=== PATIENT | female | born 1990 | race Caucasian/White ===

== ENCOUNTER 2016-06-07 16:59 | Emergency (ER) | payer BC ==
[2016-06-07 18:06] VITALS: BP 110/72
--- NOTE | 2016-06-07 18:15 | UC ---
Throat Pain/Nasal Harman HPI - HPI Summary HPI Summary: The patient comes in today for: 1. Body aches and sore throat: Onset: 2 days. Palliative/provocative: Naproxen helped the body aches. Quality: Aches Region/radiation: "All over" Severity: 7/10 though she appears more like 5/10 Time: Constant. Associated symptoms: Rhinitis: None Cough: present, but "not very much" mucous. Fever: No temperature taken. Vomiting: None Diarrhea: None. She works at [employer] and suspects that she may have picked up something for this. * - History of Current Complaint Chief Complaint: UCRespiratory Stated Complaint: FLU SYMPTOMS Time Seen by Provider: 06/07/16 18:07 Hx Last Menstrual Period: 05/29/16 ?: No - Allergies/Home Medications Allergies/Adverse Reactions: Allergies Allergy/AdvReac Type Severity Reaction Status Date / Time No Known Allergies Allergy Verified 02/29/16 08:18 Home Medications: Home Medications Naproxen Sodium [Eql Naproxen Sodium] 440 mg PO 06/07/16 [History] PMH/Surg Hx/FS Hx/Imm Hx Previously Healthy: Yes Endocrine History Of: Denies: Diabetes, Thyroid Disease, Hyperthyroidism, Hypothyroidism, Dyslipidemia Cardiovascular History Of: Denies: Cardiac Disorders, Hypertension, Pacemaker/ICD, Myocardial Infarction , Congestive Heart Failure, Atrial Fibrillation, Deep Vein Thrombosis, Bleeding Disorders Respiratory History Of: Denies: COPD, Asthma, Bronchitis, Pneumonia, Pulmonary Embolism GI/ History Of: Denies: Gastroesophageal Reflux, Ulcer, Gastrointestinal Bleed, Gall Bladder Disease, Kidney Stones, Diverticulitis, Renal Disease, Urosepsis Neurological History Of: Denies: TIA, CVA, Dementia, Seizures, Migraine Psychological History Of: Denies: Anxiety, Depression, Bipolar Disorder, Schizophrenia, Post Traumatic Stress Disorder Cancer History Of: Denies: Lung Cancer, Colorectal Cancer, Breast Cancer, Prostate Cancer, Cervical Cancer Other History Of: Negative For: HIV, Hepatitis B, Hepatitis C, Anticoagulant Therapy - Surgical History Surgical History: None - Family History Known Family History: Negative: Cardiac Disease, Hypertension - Social History Occupation: Employed Full-time Alcohol Use: None Substance Use Type: None Smoking Status (MU): Never Smoked Tobacco - Immunization History Most Recent Influenza Vaccination: 2015/2016 Review of Systems Constitutional: Negative Skin: Negative Eyes: Negative ENT: Sore Throat Respiratory: Cough Cardiovascular: Negative Gastrointestinal: Negative Genitourinary: Negative All Other Systems Reviewed And Are Negative: Yes Physical Exam Triage Information Reviewed: Yes Appearance: Well-Appearing, No Pain Distress, Well-Nourished Vital Signs: Initial Vital Signs Temp 98.2 F 06/07/16 18:02 Pulse 102 06/07/16 18:02 Resp 18 06/07/16 18:02 BP 110/72 06/07/16 18:02 Pulse Ox 99 06/07/16 18:02 Vital Signs Reviewed: Yes Eyes: Positive: Conjunctiva Clear. Negative: Discharge ENT: Positive: Hearing grossly normal. Negative: Pharyngeal erythema, Nasal congestion, Nasal drainage, TM bulging, TM dull, TM red, Tonsillar swelling, Tonsillar exudate Dental: Negative: Gross Decay/Caries @, Dental Fracture @ Neck: Positive: Supple, Nontender, No Lymphadenopathy. Negative: Nuchal Rigidity Respiratory: Positive: Chest non-tender, Lungs clear, No respiratory distress, No accessory muscle use. Negative: Crackles, Wheezing Cardiovascular: Positive: RRR, No Murmur Abdomen Description: Positive: Nontender, No Organomegaly. Negative: Distended , Guarding, Peritoneal Signs Musculoskeletal: Positive: Strength Intact, ROM Intact Neurological: Positive: Alert, Muscle Tone Normal Psychological: Negative: Age Appropriate Behavior, Consolable Skin: Negative: rashes, breakdown Diagnostics - Laboratory Diagnostic Studies Completed/Ordered: Strep test: (-) Throat Pain/Nasal Course/Dx - Course Course Of Treatment: Patient was told how we could test her for influenza, but she did not want this. Her treatment options (with the negative strep test) were explained. But, she only wanted prescription of Naproxen. - Differential Dx/Diagnosis Differential Diagnosis/HQI/PQRI: Laryngitis, Pharyngitis, Tonsillitis Provider Diagnoses: Viral pharyngitis Discharge - Discharge Plan Condition: Stable Disposition: HOME Patient Education Materials: Pharyngitis (ED), Viral Syndrome (ED) Referrals: Sue Thompson MD [Primary Care Provider] - 1 Week (Please see your primary care provider in a week. If you get worse, please be seen sooner.)
[2016-06-07] MEDS ORDERED: Naproxen TAB* 250 MG PO ONE (18:19)
== END 2016-06-07 18:59 | disposition home or self-care (01) ==
LOC: UCEAST 16:59
DX: J02.9 Acute pharyngitis, unspecified (principal); M79.1 Myalgia
CPT/HCPCS: 87651; 99211; A9270-GY; G0463

== ENCOUNTER 2017-08-14 10:00 | Emergency (ER) | payer BC ==
[2017-08-14 10:15] VITALS: BP 119/66
--- NOTE | 2017-08-14 10:17 | UC ---
Throat Pain/Nasal Harman HPI - HPI Summary HPI Summary: Patient presents with an unremarkable past medical history. She presents today with 1 day onset throat pain, she states she is able to eat, drink, and handle her own secretions. She states she has been taking tylenol and using throat lozenges. She has not had any known ill contacts. She did not go to work today and need an excuse. - History of Current Complaint Stated Complaint: SORE THROAT, AND COUGH Time Seen by Provider: 08/14/17 10:04 Hx Last Menstrual Period: 05/29/16 Onset/Duration: Sudden Onset, Lasting Hours Severity: Mild Cough: None Associated Signs & Symptoms: Positive: Negative - Epiglottits Risk Factors Epiglottis Risk Factors: Negative - Allergies/Home Medications Allergies/Adverse Reactions: Allergies Allergy/AdvReac Type Severity Reaction Status Date / Time No Known Allergies Allergy Verified 02/29/16 08:18 PMH/Surg Hx/FS Hx/Imm Hx Previously Healthy: Yes Other History Of: Negative For: HIV, Hepatitis B, Hepatitis C, Anticoagulant Therapy - Surgical History Surgical History: None - Family History Known Family History: Negative: Cardiac Disease, Hypertension - Social History Occupation: Employed Full-time Lives: Alone Alcohol Use: None Substance Use Type: None Smoking Status (MU): Never Smoked Tobacco Have You Smoked in the Last Year: No - Immunization History Most Recent Influenza Vaccination: 2015/2016 Review of Systems Constitutional: Negative Skin: Negative Eyes: Negative ENT: Sore Throat Respiratory: Negative Cardiovascular: Negative Gastrointestinal: Negative Genitourinary: Negative Motor: Negative Neurovascular: Negative Musculoskeletal: Negative Neurological: Negative Psychological: Negative Is Patient Immunocompromised?: No All Other Systems Reviewed And Are Negative: Yes Physical Exam Triage Information Reviewed: Yes Appearance: Well-Appearing Vital Signs Reviewed: Yes Eye Exam: Normal ENT: Positive: Pharyngeal erythema, TMs normal, Uvula midline Dental Exam: Normal Neck exam: Normal Neck: Positive: 1 Respiratory Exam: Normal Cardiovascular Exam: Normal Abdominal Exam: Normal Musculoskeletal Exam: Normal Neurological Exam: Normal Psychological Exam: Normal Skin Exam: Normal Throat Pain/Nasal Course/Dx - Course Course Of Treatment: Patient presents with an unremarkable past medical history with 1 day onset sore throat, she is able to speak, drink, eat, and handle her own secretions. Her tonsilar nodes are not swollen, and there is no exudate present, with normal vital signs and a nontoxic appearance. She presents with what I feel is most likley a viral pharyngitis, and I recommend she continue conservative treatment of tyelnol, and throat lozengers. I did provide her with a work note, she may return tomorrow without limitations. - Differential Dx/Diagnosis Differential Diagnosis/HQI/PQRI: Pharyngitis Provider Diagnoses: pharyngitis Discharge - Sign-Out/Discharge Documenting (check all that apply): Discharge/Admit/Transfer - Discharge Plan Condition: Stable Disposition: HOME Forms: *Work Release Referrals: Sue Thompson MD [Primary Care Provider] - - Billing Disposition and Condition Condition: STABLE Disposition: HOME
== END 2017-08-14 10:15 | disposition home or self-care (01) ==
LOC: UCEAST 10:00
DX: J02.9 Acute pharyngitis, unspecified (principal)
CPT/HCPCS: 99211; G0463

== ENCOUNTER 2018-10-10 08:08 | Emergency (ER) | payer BC ==
[2018-10-10 08:17] VITALS: BP 114/77
--- NOTE | 2018-10-10 09:07 | UC ---
Complaint Female HPI - HPI Summary HPI Summary: 2 DAYS OF DYSURIA, URGENCY AND FREQUENCY. NO BACK PAIN, FEVER OR NAUSEA. PATIENT WAS TAKING VESICARE FOR POSSIBLE OVERACTIVE BLADDER PER UROLOGY BUT JUST STOPPED THIS MEDICATION ABOUT 2 DAYS AGO. - History Of Current Complaint Chief Complaint: UCGU Stated Complaint: urine issues Time Seen by Provider: 10/10/18 08:13 Hx Obtained From: Patient Hx Last Menstrual Period: 10/01/18 Onset/Duration: Gradual Onset, Lasting Days, Still Present Timing: Constant Severity Initially: Moderate Severity Currently: Moderate Pain Intensity: 6 Pain Scale Used: 0-10 Numeric Character: Burning Aggravating Factor(s): Urination Alleviating Factor(s): Nothing Associated Signs And Symptoms: Positive: Negative - Allergies/Home Medications Allergies/Adverse Reactions: Allergies Allergy/AdvReac Type Severity Reaction Status Date / Time No Known Allergies Allergy Verified 10/10/18 08:17 PMH/Surg Hx/FS Hx/Imm Hx - Additional Past Medical History Additional PMH: POSSIBLE OVERACTIVE BLADDER FIBROID UTERUS Other History Of: Negative For: HIV, Hepatitis B, Hepatitis C, Anticoagulant Therapy - Surgical History Surgical History: None - Family History Known Family History: Negative: Cardiac Disease, Hypertension - Social History Alcohol Use: None Substance Use Type: None Smoking Status (MU): Never Smoked Tobacco Have You Smoked in the Last Year: No - Immunization History Most Recent Influenza Vaccination: 2015/2016 Review of Systems All Other Systems Reviewed And Are Negative: Yes Constitutional: Positive: Negative Respiratory: Positive: Negative Cardiovascular: Positive: Negative Gastrointestinal: Positive: Negative Genitourinary: Positive: Dysuria, Frequency, Urgency Physical Exam Triage Information Reviewed: Yes Appearance: Well-Appearing, No Pain Distress, Well-Nourished Vital Signs: Initial Vital Signs Temp 98 F 10/10/18 08:15 Pulse 79 10/10/18 08:15 Resp 17 10/10/18 08:15 BP 114/77 10/10/18 08:15 Pulse Ox 100 10/10/18 08:15 Laboratory Tests 10/10/18 08:27 POC Urine Color Amparo POC Urine Clarity Cloudy POC Urine pH 6.0 POC Ur Specif Allen >= 1.030 POC Urine Protein 2+ A POC Ur Glucose (UA) Negative POC Urine Ketones Negative POC Urine Blood 3+ A POC Urine Nitrite Negative POC Urine Bilirubin Negative POC Urine Urobilinogen 0.2 POC U Leukocyte Esteras 2+ A Eyes: Positive: Conjunctiva Clear ENT: Positive: Hearing grossly normal Respiratory: Positive: No respiratory distress, No accessory muscle use Cardiovascular: Positive: Pulses Normal Abdomen Description: Positive: Soft, Other: - MILD SUPRAPUBIC TENDERNESS. Negative: CVA Tenderness (R), CVA Tenderness (L), Distended, Guarding Musculoskeletal: Positive: No Edema Neurological: Positive: Alert Psychological: Positive: Age Appropriate Behavior Skin: Negative: Rashes Complaint Female Dx - Differential Dx/Diagnosis Provider Diagnosis: UTI (urinary tract infection) Discharge - Sign-Out/Discharge Documenting (check all that apply): Patient Departure All imaging exams completed and their final reports reviewed: No Studies - Discharge Plan Condition: Stable Disposition: HOME Prescriptions: Sulfamethox/Trimethoprim DS* [Bactrim DS 800/160 TAB*] 1 tab PO BID #10 tab Patient Education Materials: Urinary Tract Infection in Women (ED) Referrals: Tasha Mathew WET ROOM WORKER [Primary Care Provider] - If Needed Additional Instructions: TAKE THE BACTRIM TWICE DAILY FOR THE FULL 5 DAYS. WE HAVE SENT YOUR URINE FOR CULTURE AND WILL CALL YOU IF YOUR MEDICATION NEEDS TO BE CHANGED. STAY WELL HYDRATED AND FOLLOW-UP WITH YOUR UROLOGIST IF YOUR SYMPTOMS DO NOT IMPROVE EXPECTED. - Billing Disposition and Condition Condition: STABLE Disposition: Home
== END 2018-10-10 09:09 | disposition home or self-care (01) ==
LOC: UCEAST 08:08
DX: N39.0 Urinary tract infection, site not specified (principal)
CPT/HCPCS: 81003; 87077; 87086; 87186; 99212; G0463

== ENCOUNTER 2018-12-03 17:21 | Emergency (ER) | payer BC ==
[2018-12-03 17:36] VITALS: BP 105/65
[2018-12-03] MEDS ORDERED: Cephalexin CAP* 500 MG PO ONE (17:50)
--- NOTE | 2018-12-03 17:54 | UC ---
Complaint Female HPI - HPI Summary HPI Summary: C/O UTI SYMPTOMS STARTING TODAY - History Of Current Complaint Chief Complaint: UCGU Stated Complaint: URINARY COMPLAINT Time Seen by Provider: 12/03/18 17:39 Hx Obtained From: Patient Hx Last Menstrual Period: 11/20/18 ?: No Onset/Duration: Sudden Onset, Lasting Days - 2 Timing: Constant Severity Initially: Mild Severity Currently: Moderate Pain Intensity: 5 Character: Burning Aggravating Factor(s): Urination - Allergies/Home Medications Allergies/Adverse Reactions: Allergies Allergy/AdvReac Type Severity Reaction Status Date / Time No Known Allergies Allergy Verified 12/03/18 17:36 Home Medications: Home Medications Solifenacin Succinate [Vesicare] 5 mg PO DAILY 12/03/18 [History Confirmed 12/03] PMH/Surg Hx/FS Hx/Imm Hx Previously Healthy: Yes Other History Of: Negative For: HIV, Hepatitis B, Hepatitis C, Anticoagulant Therapy - Surgical History Surgical History: None - Family History Known Family History: Negative: Cardiac Disease, Hypertension - Social History Alcohol Use: None Substance Use Type: None Smoking Status (MU): Never Smoked Tobacco Have You Smoked in the Last Year: No - Immunization History Most Recent Influenza Vaccination: 2015/2016 Review of Systems All Other Systems Reviewed And Are Negative: Yes Genitourinary: Positive: Dysuria, Frequency, Urgency Is Patient Immunocompromised?: No Physical Exam Triage Information Reviewed: Yes Appearance: Well-Appearing, Well-Nourished, Pain Distress Vital Signs: Initial Vital Signs Temp 97.9 F 12/03/18 17:32 Pulse 71 12/03/18 17:32 Resp 16 12/03/18 17:32 BP 105/65 12/03/18 17:32 Pulse Ox 100 12/03/18 17:32 Vital Signs Reviewed: Yes Eye Exam: Normal ENT Exam: Normal Dental Exam: Normal Neck exam: Normal Respiratory Exam: Normal Respiratory: Positive: Chest non-tender, Lungs clear, Normal breath sounds Cardiovascular Exam: Normal Cardiovascular: Positive: RRR, No Murmur, Pulses Normal Abdominal Exam: Normal Bowel Sounds: Positive: Present Musculoskeletal Exam: Normal Neurological Exam: Normal Psychological Exam: Normal Skin Exam: Normal Complaint Female Dx - Course Course Of Treatment: hx obtained, exam performed ,meds reviewed, treated for uti - Differential Dx/Diagnosis Differential Diagnosis/HQI/PQRI: Urinary Tract Infection Provider Diagnosis: UTI (urinary tract infection) Discharge ED - Sign-Out/Discharge Documenting (check all that apply): Patient Departure All imaging exams completed and their final reports reviewed: No Studies - Discharge Plan Condition: Stable Disposition: HOME Patient Education Materials: Urinary Tract Infection in Women (ED) Referrals: Tasha Mathew NP [Primary Care Provider] - Additional Instructions: 1. take the medication as prescribed. 2. Increase fluids 3. FOllow up if not improving. - Billing Disposition and Condition Condition: STABLE Disposition: Home
--- NOTE | 2018-12-05 15:17 | UC ---
- Progress Note Progress Note: please notify patient No UTI Stop antibiotic needs to be re seen if still symptomatic Course/Dx - Diagnoses Provider Diagnoses: UTI (urinary tract infection) Discharge ED - Sign-Out/Discharge Documenting (check all that apply): Post-Discharge Follow Up All imaging exams completed and their final reports reviewed: No Studies - Discharge Plan Condition: Stable Disposition: HOME Prescriptions: Cephalexin CAP* [Keflex CAP*] 500 mg PO BID #13 cap Patient Education Materials: Urinary Tract Infection in Women (ED) Referrals: Tasha Mathew NP [Primary Care Provider] - Additional Instructions: 1. take the medication as prescribed. 2. Increase fluids 3. FOllow up if not improving. - Billing Disposition and Condition Condition: STABLE Disposition: Home
== END 2018-12-03 18:02 | disposition home or self-care (01) ==
LOC: UCEAST 17:21
DX: N39.0 Urinary tract infection, site not specified (principal)
CPT/HCPCS: 81003; 87086; 99212; A9270-GY; G0463